=== PATIENT | male | born 1960 | race Caucasian/White ===

== ENCOUNTER 2018-12-22 22:17 | Emergency (ER) | payer MEDICARE, OTHER ==
--- NOTE | 2018-12-23 01:51 | ED ---
Lower Extremity - HPI Summary HPI Summary: 59 year old male presents with right knee pain for the past couple days. He denies any injury. No fevers or chills. Has erythema to the area. He has never had this before. he states the knee has been popping and locking. He states feels like it is going to give out on him. He is diabetic. - History of Current Complaint Chief Complaint: EDExtremityLower Stated Complaint: RT KNEE PAIN PER PT Time Seen by Provider: 12/23/18 00:44 Pain Intensity: 8 - Allergies/Home Medications Allergies/Adverse Reactions: Allergies Allergy/AdvReac Type Severity Reaction Status Date / Time No Known Allergies Allergy Verified 12/22/18 22:36 Home Medications: Home Medications Allopurinol 300 mg PO DAILY 12/23/18 [History Confirmed 12/23/18] PMH/Surg Hx/FS Hx/Imm Hx Endocrine/Hematology History: Reports: Hx Diabetes Denies: Hx Thyroid Disease Cardiovascular History: Reports: Hx Hypertension - ON MEDS Denies: Hx Pacemaker/ICD Respiratory History: Denies: Hx Asthma, Hx Chronic Obstructive Pulmonary Disease (COPD) GI History: Denies: Hx Ulcer History: Denies: Hx Renal Disease Musculoskeletal History: Reports: Hx Back Problems Sensory History: Denies: Hx Hearing Aid Neurological History: Reports: Other Neuro Impairments/Disorders - PAIN CLINIC PT. Psychiatric History: Denies: Hx Panic Disorder - Surgical History Surgery Procedure, Year, and Place: LEFT HYDROCELECTOMY SURGERY BY DR. TORRES - ; LASIK EYE; Infectious Disease History: No Infectious Disease History: Denies: Hx Hepatitis, Hx Human Immunodeficiency Virus (HIV), Traveled Outside the [place] in Last 30 Days - Family History Known Family History: Positive: Non-Contributory - Social History Alcohol Use: None Substance Use Type: Reports: None Smoking Status (MU): Former Smoker Type: Cigarettes Have You Smoked in the Last Year: No Review of Systems Negative: Fever Negative: Chest Pain Negative: Shortness Of Breath Positive: Myalgia - right knee pain All Other Systems Reviewed And Are Negative: Yes Physical Exam Triage Information Reviewed: Yes Vital Signs On Initial Exam: Initial Vitals Temp Pulse Resp BP Pulse Ox 98.2 F 77 16 157/92 99 12/22/18 22:32 12/22/18 22:32 12/22/18 22:32 12/22/18 22:32 12/22/18 22:32 Vital Signs Reviewed: Yes Appearance: Positive: Well-Appearing Skin: Positive: Warm, Dry Head/Face: Positive: Normal Head/Face Inspection Eyes: Positive: Normal, Conjunctiva Clear ENT: Positive: Pharynx normal Respiratory/Lung Sounds: Positive: Clear to Auscultation, Breath Sounds Present Cardiovascular: Positive: Normal, RRR Musculoskeletal: Positive: Limited @ - full ROM with pain right knee, Other - good pulses, no erythema, no laxity to joint noted. Negative: Edema Right Neurological: Positive: Normal Psychiatric: Positive: Normal Diagnostics - Vital Signs Vital Signs Temp Pulse Resp BP Pulse Ox 12/22/18 22:32 98.2 F 77 16 157/92 99 - Laboratory Lab Statement: Any lab studies that have been ordered have been reviewed, and results considered in the medical decision making process. Lower Extremity Course/Dx - Course Course Of Treatment: 59 year old male presents with right knee pain for the past couple days. He denies any injury. No fevers or chills. Has erythema to the area. He has never had this before. he states the knee has been popping and locking. He states feels like it is going to give out on him. He is diabetic. Pain is over lateral aspect of the right knee. Neurovascular intact. X-ray normal. Patient has a brace. We'll have follow-up with orthopedic. Patient understands and agrees plan. - Diagnoses Differential Diagnosis/HQI/PQRI: Positive: Fracture (Closed), Sprain, Strain Provider Diagnoses: Right knee pain Discharge ED - Sign-Out/Discharge Documenting (check all that apply): Patient Departure Patient Received Moderate/Deep Sedation with Procedure: No - Discharge Plan Condition: Good Disposition: HOME Patient Education Materials: Knee Pain (ED) Referrals: Kenton Vincent MD [Primary Care Provider] - Gideon Barksdale MD [Medical Doctor] - Additional Instructions: take ibuprofen or tyenlol for pain every 6 hours follow up with ortho ice, elevate Return to ED if develop any new or worsening symptoms - Billing Disposition and Condition Condition: GOOD Disposition: Home - Attestation Statements Provider Attestation: I was available for consultation for this patient. I did not evaluate the patient or participate in any medical decision making or disposition decisions unless I am specifically named in the chart as having consulted on the patient. If I have consulted on the patient, please see my own ED note on the patient encounter. Jin Silva MD
[2018-12-23 02:00] VITALS: BP 148/90
== END 2018-12-23 01:59 | disposition home or self-care (01) ==
LOC: ED 22:17
DX: M25.561 Pain in right knee (principal); M17.11 Unilateral primary osteoarthritis, right knee; E11.9 Type 2 diabetes mellitus without complications; I10 Essential (primary) hypertension; Z87.891 Personal history of nicotine dependence
CPT/HCPCS: 99282